=== PATIENT | female | born 2000 | race Asian ===

== ENCOUNTER 2022-03-12 20:28 | Emergency (ER) | payer OTHER ==
[2022-03-12 20:41] VITALS: RESP 19; BMI 21.9
[2022-03-12] MEDS ORDERED: ACETAMINOPHEN 325 MG TABLET (FP) PO ONE (20:51)
[2022-03-12] MEDS ORDERED: ACETAMINOPHEN 325 MG TABLET (FP) ONE (21:30)
[2022-03-12 21:59] VITALS: BP 104/57; PULSE 71; TEMP 98
== END 2022-03-12 22:22 | disposition home or self-care (01) ==
LOC: JER 20:28
DX: G44.319 Acute post-traumatic headache, not intractable (principal); V43.52XA Car driver injured in collision with other type car in traffic accident, initial encounter
CPT/HCPCS: 73070-TC-RT-FY; 99283-25

== ENCOUNTER 2024-07-23 23:29 | Emergency (ER) | payer OTHER ==
[2024-07-23 23:39] VITALS: BP 111/60; PULSE 60; RESP 20; TEMP 99.1; BMI 19.3
[2024-07-24] MEDS: AMOX TR/POT CLAV 875MG/125MG TABLETS (FP) PO ONE (00:08)
[2024-07-24] MEDS ORDERED: KETOROLAC TROMETHAMINE 30 MG/1 ML VIAL ONE (00:16)
[2024-07-24] MEDS: KETOROLAC TROMETHAMINE 30 MG/1 ML VIAL IM ONE (00:21)
== END 2024-07-24 00:25 | disposition home or self-care (01) ==
LOC: JER 23:29
PROC: 3E0233Z Introduction of Anti-inflammatory into Muscle, Percutaneous Approach (ICD-10-PCS; principal; 2024-07-24)
DX: R22.0 Localized swelling, mass and lump, head (principal); R59.0 Localized enlarged lymph nodes; K12.2 Cellulitis and abscess of mouth
CPT/HCPCS: 96372; 99284-25